=== PATIENT | female | born 1960 | race Asian ===

== ENCOUNTER → 2023-10-10 10:42 | Outpatient (REF) | payer OTHER, SELFPAY | LOC: HWRAD 10:42 | PROVIDERS: ATTENDING PHYSICIAN Internal Medicine; FAMILY PHYSICIAN Family Medicine | DX: R22.42 Localized swelling, mass and lump, left lower limb (principal); R22.9 Localized swelling, mass and lump, unspecified | CPT/HCPCS: 76882 ==

== ENCOUNTER → 2024-03-30 12:39 | Outpatient (REF) | payer OTHER, SELFPAY | LOC: RAD 12:39 | PROVIDERS: ATTENDING PHYSICIAN Internal Medicine Gastroenterology; FAMILY PHYSICIAN Family Medicine | DX: K59.00 Constipation, unspecified (principal) | CPT/HCPCS: 74018 ==

== ENCOUNTER → 2024-04-15 06:33 | Day surgery (SDC) | payer OTHER, SELFPAY | LOC: GI 06:33 | PROVIDERS: ATTENDING PHYSICIAN Internal Medicine Gastroenterology | DX: D12.5 Benign neoplasm of sigmoid colon (principal); Q43.8 Other specified congenital malformations of intestine; K22.70 Barrett's esophagus without dysplasia; K22.89 Other specified disease of esophagus; K21.9 Gastro-esophageal reflux disease without esophagitis; Z86.010 Personal history of colon polyps; Z98.890 Other specified postprocedural states | CPT/HCPCS: 45385; 43239; 88305 ==

== ENCOUNTER → 2024-09-06 13:35 | Outpatient (REF) | payer MEDICARE, SELFPAY | LOC: RAD 13:35 | PROVIDERS: ATTENDING PHYSICIAN Internal Medicine Rheumatology; FAMILY PHYSICIAN Family Medicine | DX: M81.0 Age-related osteoporosis without current pathological fracture (principal) | CPT/HCPCS: 77080 ==

== ENCOUNTER → 2024-10-22 07:43 | Outpatient (REF) | payer MEDICARE, SELFPAY | LOC: HWRAD 07:43 | PROVIDERS: ATTENDING PHYSICIAN Nurse Practitioner Family; FAMILY PHYSICIAN Family Medicine | DX: E04.2 Nontoxic multinodular goiter (principal) | CPT/HCPCS: 76536 ==

== ENCOUNTER 2024-11-26 17:07 | Emergency (ER) | payer MEDICARE, OTHER, SELFPAY ==
[2024-11-26 17:09] VITALS: BP 167/100
[2024-11-26 17:48] VITALS: BMI 20.5
--- NOTE | 2024-11-26 17:48 | ED.MUSCINJ ---
HPI-Injury
General
Chief Complaint: Musculo-Skeletal Complaint
Source: patient
Exam Limitations: none
Time Seen by Provider: 11/26/24 17:30
Nursing documentation reviewed up to this point in time: agreed with
History of Present Illness-Injury
Initial Injury comments:
64 yo female states she closed her car door on her left ring finger tip about an hour ago. Had Tdap 2 yrs ago.
Past History
Past History
ED Past Medical History: Fibromyalgia, Psychiatric (Anxiety/depression) and Other (Chronic pain)
ED Past Surgical History: Orthopedic
Social History
Tobacco: Non-smoker
Personal:
Living: with family
Review of Systems
Review of Systems
Allergies reviewed?: Yes
All Other Systems: ROS reviewed and negative except as documented in HPI and ROS
Musculoskeletal: Reports other (Pain and swelling tip of left ring finger.)
Musculoskeletal Injury Exam
Musculoskeletal Injury Exam
distal left ring finger:
Pain with Movement?: Moderate
Tender to palpation?: Moderate
Soft tissue swelling?: Mild
External deformity and angulation?: None
Hematoma-local bleeding into tissue?: Other (no subungual hematoma)
Malalignment/deformity?: No
Range of motion: Limited (tendon function intact)
Distal skin color and temperature: normal-warm & good color
Capillary Refill: normal
Normal distal neurovascular exam?: Yes
Phy Exam
Physical Exam
Physical Exam:
PHYSICAL EXAMINATION:
General: no apparent distress, not acutely ill
Neuro: alert and oriented.
Psychiatric: well kept. interactive and cooperative
Musculoskeletal: Moves with ease
Skin: Warm, pink.
Injury Course
Orders/Labs/Results
Orders:
Orders
11/26/24 17:12
CR Finger(s)/thumb Min 2 Vw Lt Urgent
Comment:
Reason For Exam: injury, pain
Indicate Which Finger:: Ring Finger
MDM/Problems Addressed
MDM/Problems Addressed:
64 yo female states she closed her car door on her left ring finger tip about an hour ago. Had Tdap 2 yrs ago.
Xray L ring finger initially read by this examiner. Tiny avulsion fracture of the distal phalanx
Wound soaked in hydrogen peroxide solution, antibiotic ointment and Band-Aid applied. All tendon function intact. Aluminum fingertip splint applied to protect
*Critical Care Note
Total Time (30-74mins, 75-104mins- exclusive of procedures): Not Applicable
ED Attending Note
-
Portions of this chart may have been created with voice recognition software.� Occasional wrong word or��sound alike� substitutions may have occurred due to the inherent limitations of voice recognition software.
Discharge Plan
Departure
Patient Disposition: Home (Routine Discharge)
Date of Disposition: 11/26/24
Time of Disposition: 17:52
Patient with high blood pressure during this ER visit?: No
Condition: Good
Discharge Problem:
Fracture of distal phalanx of left ring finger
Instructions: Using Cold for Pain, Finger Fracture ED
Prescriptions:
No Action
celecoxib 200 MG capsule
200 mg PO BID
dextroamphetamine-amphetamine [Adderall] 20 MG tablet
20 mg PO DAILY
L.acidoph,paracasei,B.animalis 1 EACH capsule
1 cap PO DAILY
Magnesium Citrate
2 tab PO DAILY
Vitamin D3 (cholecalciferol):
1 tab PO DAILY
multivitamin 1 EACH tablet
1 tab PO HS
cyanocobalamin (vitamin B-12) 1,000 MCG tablet
1,000 mcg PO HS
lorazepam 0.5 MG tablet
0.5 mg PO DAILYPRN PRN (Reason: anixety)
sennosides [senna] 8.6 MG capsule
8.6 mg PO DAILYPRN PRN (Reason: constipation)
s-adenosylmethionine [SAMMY-e] 200 MG tablet
200 mg PO DAILYPRN PRN (Reason: mood stabilizer)
fluoxetine [Prozac] 40 MG capsule
60 mg PO DAILY
ibuprofen 400 MG tablet
400 mg PO DAILYPRN PRN (Reason: pain)
diphenhydramine-acetaminophen [Tylenol PM Extra Strength] 1 EACH tablet
1 tab PO HSPRN PRN (Reason: pain/insomnia)
Referrals:
Marielle Wilson MD [Family Provider] - As needed
Activity Restrictions/Additional Instructions:
As we discussed, you may eventually lose the nail, another will grow back
Cleanse the area daily with soap and water, apply antibiotic ointment, band aid. Use the fingertip splint as needed for protection.
Keep the area protected with a band aid to avoid the nail getting snagged on something and pulled off .
Elevating the hand slightly higher than your heart will help minimize throbbing pain.
Ibuprofen 600 mg, with food, every 6 hours as needed for pain.
Interventions
Interventions:
*Risk Screen - Suicide Last Done: 11/26/24 17:09
*General Assessment Last Done: 11/26/24 17:09
*Neglect/Abuse Screening Last Done: 11/26/24 17:09
*ED- Fall Risk Assessment Last Done: 11/26/24 18:02
*ED COVID-19 Vaccine History Last Done: 11/26/24 17:09
*Nursing Disposition Last Done: 11/26/24 18:02
ED-Musculoskeletal Assessment Last Done: 11/26/24 17:48
Discharge Date and Time
Discharge Date/Time: 11/26/24 18:03
Print Language: TUNISIAN
[2024-11-26 17:57] VITALS: BP 134/77
== END 2024-11-26 18:03 | disposition home or self-care (01) ==
LOC: EMR 17:07
PROVIDERS: EMERGENCY PHYSICIAN Emergency Medicine; FAMILY PHYSICIAN Family Medicine
DX: S62.635B Displaced fracture of distal phalanx of left ring finger, initial encounter for open fracture (principal); W23.0XXA Caught, crushed, jammed, or pinched between moving objects, initial encounter; F41.8 Other specified anxiety disorders; M79.7 Fibromyalgia
CPT/HCPCS: 99283; 73140

== ENCOUNTER → 2025-03-28 08:34 | Outpatient (REF) | payer MEDICARE, OTHER, SELFPAY | LOC: HWRAD 08:34 | PROVIDERS: ATTENDING PHYSICIAN Family Medicine | DX: K40.90 Unilateral inguinal hernia, without obstruction or gangrene, not specified as recurrent (principal) | CPT/HCPCS: 76882 ==

== ENCOUNTER 2025-05-10 06:19 | Day surgery (SDC) | payer MEDICARE, OTHER, SELFPAY ==
[2025-04-25 14:25] VITALS: BMI 20.5
[2025-05-10] VITALS (14 sets, daily range): BP systolic 89–134; BP diastolic 59–82; BMI 20.5
[2025-05-10] MEDS: NORMOSOL-R/PLASMALYTE-A 1000 IV (10:00)
[2025-05-10] MEDS: TYLENOL 1000 MG PO (10:00)
--- NOTE | 2025-05-10 11:37 | W.SUR.PREOP ---
Pre-Operative Surgical Note
-
I have examined this patient prior to the performance of the scheduled procedure.
The patient's condition is unchanged from the time of the current History and
Physical and the patient is able to undergo the scheduled procedure.
--- NOTE | 2025-05-10 11:37 | HP.FOC2 ---
Focused History & Physical
Chief Complaint
HPI:
Chief Complaint: Left inguinal hernia
HPI / Indication for Planned Procedure: This is a 64-year-old female with a symptomatic left inguinal hernia. Will plan for robotic left inguinal hernia, possible right.
Relevant Past Medical History: Negative
Relevant Social History: Negative
Relevant Family History: Negative
Relevant Past Surgical History: Positive for
Review of Systems
Review of Pertinent Systems: All Systems Negative
Medication
See Medication form for detailed medications: Yes
Medication List (including Herbals & OTC):
diphenhydramine 25 mg-acetaminophen 500 mg tablet (Tylenol PM Extra Strength) 2 tab PO HSPRN PRN pain/insomnia 08/07/21
lorazepam 0.5 mg tablet 0.5 mg PO DAILYPRN PRN anixety 08/07/21
bupropion HCl 300 mg 24 hr tablet, extended release 300 mg PO DAILY 05/03/25
buspirone 15 mg tablet 15 mg PO BID 05/03/25
cholecalciferol (vitamin D3) 50 mcg (2,000 unit) capsule (Vitamin D3) 100 mcg PO DAILY 05/03/25
epinephrine 0.3 mg/0.3 mL injection, auto-injector (EpiPen) 0.3 mg IM ONCE PRN anaphylaxis 05/03/25
gabapentin 300 mg capsule 300 mg PO HS 05/03/25
linaclotide 290 mcg capsule (Linzess) 290 mcg PO DAILY 05/03/25
magnesium 200 mg tablet 200 mg PO HS 05/03/25
meloxicam 15 mg tablet 15 mg PO HS 05/03/25
pantoprazole 40 mg tablet,delayed release 40 mg PO DAILY 05/03/25
Medications Reviewed: Yes
Allergies and Reactions
Patient has Allergies: Yes
Noted Allergies and Reactions:
Allergy/AdvReac Type Severity Reaction Status Date / Time
almond Allergy Anaphylaxis Verified 05/03/25 10:37
mcneil Allergy Blisters Verified 05/10/25 09:42
house dust Allergy congestion Verified 05/03/25 10:38
mold Allergy congestion Verified 05/03/25 10:38
pollen extracts Allergy seasonal Verified 05/03/25 10:37
allergies
walnut Allergy Anaphylaxis Verified 05/03/25 10:37
Pertinent Physical Exam
All Other Systems: Negative
Head/Neck: Normal
Diagnosis / Assessment
This is a 64-year-old female with a symptomatic left inguinal hernia. Will plan for robotic left inguinal hernia, possible right.
Plan / Procedure
This is a 64-year-old female with a symptomatic left inguinal hernia. Will plan for robotic left inguinal hernia, possible right.
Anesthesia/Sedation to be done by Anesthesia Provider: Yes
--- NOTE | 2025-05-10 13:14 | W.IMMPOSTOP ---
Surgical Immed Post Op Note
-
Primary Surgeon: Itz Chacko MD
Assisting Surgeon: None
Pre-op Diagnosis: Left inguinal hernia
Post-op Diagnosis: Same
Procedure Performed: Robotic left inguinal hernia repair with mesh
Anesthesia Type: General
Specimen / Cultures: None
Estimated Blood Loss: 3 cc
Complications: None
Operative Findings: Left indirect inguinal hernia. No femoral or direct component. No contralateral hernia identified. After achieving the critical view of the MPO the space was reinforced with a large left Bard 3D max mid weight uncoated
polypropylene mesh.
--- NOTE | 2025-05-10 13:15 | OR.RPT ---
Operative Report
Operative Report
Patient Name: Carol Carbajal
: 1960
Date of Operation: 05/10/2025
Preoperative Diagnosis: Reducible Inguinal hernia, left
Postoperative Diagnosis: Same
Procedure(s):
1. Robotic Inguinal Hernia Repair with mesh, (BARBARA approach)
Surgeon(s):
Dr. Chacko
Metal Buildings Assembler(s):
AVANI Adame
Anesthesia: General
Estimated Blood Loss: 3 cc
Urine Output: None
Drains/Lines/Implants: Large 3D Max Bard mid weight uncoated polypropylene mesh
Specimens: None
Indication for surgery: The patient has a history of groin pain and noted on exam to have a Left inguinal Hernia(s). Following review of therapeutic options they have elected to undergo a minimally invasive repair.
Operative Findings: Left indirect inguinal hernia. No femoral or direct component. No contralateral hernia identified. After achieving the critical view of the MPO the space was reinforced with a large left Bard 3D max mid weight uncoated
polypropylene mesh.
Details of the operation:
The patient was brought to the Operating Room and placed in the supine position with the arms tucked. IV antibiotics were infused and Venodyne stockings placed. Following uneventful induction of general endotracheal anesthesia, an orogastric tube
was placed. The abdomen was prepped and draped in the usual sterile fashion. The abdomen was entered using a Veress technique which required 1 pass, pneumoperitoneum to 15 mmHg was obtained without difficulty. An 8mm trochar was passed through the
abdominal wall roughly 20 cm cephalad to the inguinal canal. We then confirmed that no inadvertent injury was made while passing the trocar or Veress needle. We then placed two additional 8 mm ports in the left upper and right upper quadrants. We
then docked the robot with a Prograsper in the left hand port and monopolar scissors in the right. An indirect left inguinal hernia was readily identified, no hernia defect was noted on the right. We then began by creating a flap at the level of
the ASIS laterally working our way medially to the medial umbilical fold. Staying onto the peritoneum we were able to circumferentially dissect around the hernia sac and and peel it off of the underlying tissues. Medially we identified the midline
pubis as well as Lenny's ligament and ensured to dissect 2 cm below the pubic rim over the bladder. After exposure of the entire myopectineal orifice we identified and reduced: A small sized indirect inguinal hernia, no direct inguinal hernia, no
femoral hernia, a small lipoma in the canal which was reduced and removed
We then fixated a large 3D max mesh with a 2-0 Vicryl stitch at coopers medially and superior laterally. The flap was then closed with a running 2-0 barbed monocryl suture ensuring that the tail was cut flush with the medial fat pad so that no
barbs were exposed. All needles and instruments were then removed and the robot was undocked. The abdomen was then desufflated, and pneumoperitoneum evacuated. All skin sites were then closed with 4-0 Monocryl followed by Dermabond. Counts were
correct and overall, the patient tolerated the procedure well and was taken to the Recovery Room postoperatively in stable condition.
I was the attending physician and performed the procedure with assistance of the PA student above. I was present for all portions of the case.
Itz Chacko MD
[2025-05-10] MEDS: ZOFRAN 4 MG IV (13:24)
[2025-05-10] MEDS: COMPAZINE 5 MG IV (13:48)
[2025-05-10] MEDS: SUBLIMAZE 50 MCG IV ×2 (13:48→14:01)
[2025-05-10] MEDS: MOTRIN 600 MG PO (15:40)
== END 2025-05-10 16:20 | disposition home or self-care (01) ==
LOC: SDS 06:19
PROVIDERS: ATTENDING PHYSICIAN Surgery; FAMILY PHYSICIAN Family Medicine
DX: K40.90 Unilateral inguinal hernia, without obstruction or gangrene, not specified as recurrent (principal)
CPT/HCPCS: 49650; 36415; 93005; C1781

== ENCOUNTER 2025-05-20 21:12 | Emergency (ER) | payer MEDICARE, OTHER, SELFPAY ==
[2025-05-20 21:18] VITALS: BP 128/78
[2025-05-20 23:50] LABS: Hematocrit 35.5 % (37.0-47.0); Hemoglobin 11.4 g/dL (12.0-16.0); Mean Corp Hgb Conc. 32.1 g/dL (33.0-37.0); Mean Corpuscular Volume 101.1 fL (81.0-99.0); Nucleated Red Blood Cells % 0 %; Platelet Count 309 10^3/uL (130-400); Red Cell Dist. Width 12.2 % (11.5-14.5)
[2025-05-20 23:58] LABS: ALT (SGPT) 13 U/L (0-35); AST (SGOT) 19 U/L (14-36); Albumin 4.5 g/dl (3.5-5.0); Alkaline Phosphatase 31 U/L (38-126); Blood Urea Nitrogen 23 mg/dl (7-17); Calcium 9.0 mg/dl (8.4-10.2); Carbon Dioxide 29 mmol/L (22-30); Chloride 107 mmol/L (98-107); Glucose 103 mg/dl (70-99); Potassium 4.5 mmol/L (3.5-5.1); Sodium 142 mmol/L (135-145); Total Protein 7.1 g/dl (6.3-8.2); eGFR > 60.00
== END 2025-05-20 22:50 ==
LOC: EMR 21:12
PROVIDERS: Emergency Medicine
DX: Z53.21 Procedure and treatment not carried out due to patient leaving prior to being seen by health care provider (principal)
CPT/HCPCS: 80053; 85025; 86850; 86900; 86901

== ENCOUNTER → 2025-06-14 11:06 | Outpatient (REF) | payer MEDICARE, OTHER, SELFPAY | LOC: HWWDC 11:06 | PROVIDERS: ATTENDING PHYSICIAN Obstetrics & Gynecology; FAMILY PHYSICIAN Family Medicine | DX: Z12.31 Encounter for screening mammogram for malignant neoplasm of breast (principal) | CPT/HCPCS: 77063; 77067 ==

== ENCOUNTER → 2025-06-28 10:17 | Outpatient (REF) | payer MEDICARE, OTHER, SELFPAY | LOC: WDC 10:17 | PROVIDERS: ATTENDING PHYSICIAN Obstetrics & Gynecology; FAMILY PHYSICIAN Family Medicine | DX: R92.8 Other abnormal and inconclusive findings on diagnostic imaging of breast (principal) | CPT/HCPCS: 77065 ==